=== PATIENT | female | born 1985 | race Caucasian/White ===

== ENCOUNTER 2024-12-18 19:23 | Emergency (ER) | payer MEDICAID ==
[~2024-12-18] VITALS: Ht 157.5 cm; Wt 77.0 kg
[2024-12-18 19:25] VITALS: O2SAT 100
[2024-12-18 19:32] VITALS: BP 133/79; PULSE 79; RESP 16; TEMP 36.7; O2SAT 100
[2024-12-18] MEDS: ACETAMINOPHEN 325MG TABLET PO ONE (20:48)
== END 2024-12-18 21:40 | disposition home or self-care (01) ==
LOC: ER 19:23
DX: R51.9 Headache, unspecified (principal); M54.50 Low back pain, unspecified; V43.52XA Car driver injured in collision with other type car in traffic accident, initial encounter; Y93.89 Activity, other specified; Y92.89 Other specified places as the place of occurrence of the external cause; Y99.8 Other external cause status
CPT/HCPCS: 71045; 72100; 99284